=== PATIENT | male | born 1935 | race Caucasian/White ===

== ENCOUNTER 2020-12-16 03:38 | Emergency (ER) | payer OTHER ==
[2020-12-16 04:21] LABS: BILIRUBIN NEGATIVE (NEGATIVE); BLOOD 2+ Ery/uL (NEGATIVE); CLARITY HAZY (CLEAR); COLOR YELLOW (YELLOW); GLUCOSE (U) NORMAL (NORMAL); LEUKOCYTES 1+ Leu/uL (NEGATIVE); NITRITE NEGATIVE (NEGATIVE); PROTEIN 2+ mg/dL (NEGATIVE); SPECIFIC GRAVITY >=1.030 (1.001-1.030); UROBILINOGEN 0.2 mg/dL (0.2-1.0); pH 5.5 (5.0-9.0)
[2020-12-16 04:25] LABS: BACTERIA 2+; URINARY WBC TNTC
[2020-12-16 04:41] LABS: BASOPHIL 0.6 % (0-2); EOSINOPHIL 4.4 % (0-7); HCT 43.2 % (42.0-52.0); HGB 14.4 g/dl (13.2-18.0); LYMPHOCYTE 8.9 % (15-48); MCH 30.2 pg (25.0-31.0); MCHC 33.3 g/dL (32.0-36.0); MCV 90.6 fL (78.0-100.0); MONOCYTE 13.2 % (0-12); MPV 10.9 fL (6.0-9.5); NEUTROPHIL 72.6 % (41-80); NRBC 0; PLT 202 K/uL (150-400); RBC 4.77 M/uL (4.70-6.00); RDW 13.7 % (11.5-14.0); WBC 10.4 K/uL (4.0-10.5)
[2020-12-16 04:57] LABS: ALBUMIN 3.2 g/dL (3.4-5.0); BILIRUBIN - TOTAL 0.4 mg/dL (0.2-1.0); BUN/CREAT RATIO (CALC) 19.6 RATIO; CREATININE 1.58 mg/dL (0.67-1.17); POTASSIUM 3.7 mmol/L (3.5-5.1); TOTAL PROTEIN 7.2 g/dL (6.4-8.2)
[2020-12-16] MEDS ORDERED: FLOMAX0.4 MG PO (05:19)
[2020-12-16] MEDS ORDERED: MACROBID100 MG PO (05:19)
== END 2020-12-16 05:43 | disposition home or self-care (01) ==
LOC: FER 03:38
PROVIDERS: Emergency Medicine
DX: N39.0 Urinary tract infection, site not specified (principal); I25.810 Atherosclerosis of coronary artery bypass graft(s) without angina pectoris; I10 Essential (primary) hypertension; F17.210 Nicotine dependence, cigarettes, uncomplicated; Z90.49 Acquired absence of other specified parts of digestive tract; Z98.890 Other specified postprocedural states; Z79.899 Other long term (current) drug therapy; Z79.82 Long term (current) use of aspirin
CPT/HCPCS: 36415; 80053; 81001; 85025; 87076; 87088; 87186

== ENCOUNTER 2021-11-16 19:05 | Emergency (ER) | payer OTHER ==
[~2021-11-16 19:05] MED LIST: FLOMAX0.4 MG PO; MACROBID100 MG PO
[2021-11-16 20:28] LABS: BILIRUBIN NEGATIVE (NEGATIVE); BLOOD 3+ Ery/uL (NEGATIVE); CLARITY CLEAR (CLEAR); COLOR YELLOW (YELLOW); GLUCOSE (U) NORMAL (NORMAL); LEUKOCYTES 3+ Leu/uL (NEGATIVE); NITRITE POSITIVE (NEGATIVE); PROTEIN 1+ mg/dL (NEGATIVE); UROBILINOGEN 0.2 mg/dL (0.2-1.0)
[2021-11-16] MEDS ORDERED: BACTRIM DS TAB1 EACH PO (20:33)
[2021-11-16 20:37] LABS: URINARY RBC 20-50
[2021-11-16 20:38] LABS: BACTERIA 4+; URINARY WBC 20-50
== END 2021-11-16 20:44 | disposition home or self-care (01) ==
LOC: FER 19:05
PROVIDERS: Emergency Medicine
DX: N40.1 Benign prostatic hyperplasia with lower urinary tract symptoms (principal); R33.8 Other retention of urine; N39.0 Urinary tract infection, site not specified; I25.10 Atherosclerotic heart disease of native coronary artery without angina pectoris; I11.0 Hypertensive heart disease with heart failure; I50.9 Heart failure, unspecified; F17.200 Nicotine dependence, unspecified, uncomplicated; E78.5 Hyperlipidemia, unspecified; Z79.899 Other long term (current) drug therapy; Z95.1 Presence of aortocoronary bypass graft
CPT/HCPCS: 81001; 87088; 99283

== ENCOUNTER 2022-02-15 11:33 | Emergency (ER) | payer OTHER ==
[~2022-02-15 11:33] MED LIST changes: +BACTRIM DS TAB1 EACH PO
[2022-02-15 12:33] LABS: BASOPHIL 0.8 % (0-2); EOSINOPHIL 5.9 % (0-7); HCT 41.3 % (42.0-52.0); HGB 13.9 g/dl (13.2-18.0); LYMPHOCYTE 19.8 % (15-48); MCHC 33.7 g/dL (32.0-36.0); MONOCYTE 9.4 % (0-12); MPV 10.8 fL (6.0-9.5); NEUTROPHIL 63.8 % (41-80); NRBC 0; PLT 219 K/uL (150-400); RDW 14.6 % (11.5-14.0); WBC 7.3 K/uL (4.0-10.5)
[2022-02-15 12:54] LABS: BILIRUBIN - TOTAL 0.3 mg/dL (0.2-1.0); BUN/CREAT RATIO (CALC) 9.3 RATIO; CREATININE 1.29 mg/dL (0.67-1.17); GLOBULIN (CALCULATION) 3.7 g/dL; POTASSIUM 3.2 mmol/L (3.5-5.1); TOTAL PROTEIN 6.7 g/dL (6.4-8.2)
[2022-02-15 13:17] LABS: BILIRUBIN NEGATIVE (NEGATIVE); BLOOD TRACE-INTACT Ery/uL (NEGATIVE); CLARITY CLEAR (CLEAR); COLOR YELLOW (YELLOW); GLUCOSE (U) NORMAL (NORMAL); LEUKOCYTES 2+ Leu/uL (NEGATIVE); NITRITE POSITIVE (NEGATIVE); PROTEIN NEGATIVE (NEGATIVE); UROBILINOGEN 0.2 mg/dL (0.2-1.0)
[2022-02-15 13:22] LABS: BACTERIA 3+; URINARY WBC 20-50
[2022-02-15] MEDS ORDERED: CEFDINIR300 MG PO (14:55)
== END 2022-02-15 15:05 | disposition home or self-care (01) ==
LOC: FER 11:33
PROVIDERS: Internal Medicine
DX: N39.0 Urinary tract infection, site not specified (principal); E87.6 Hypokalemia; I25.810 Atherosclerosis of coronary artery bypass graft(s) without angina pectoris; Z95.5 Presence of coronary angioplasty implant and graft; F17.210 Nicotine dependence, cigarettes, uncomplicated
CPT/HCPCS: 36415; 80053; 81001; 84145; 85025; 87076; 87088; 87186; J0696; J7030